=== PATIENT | female | born 1945 | race Caucasian/White ===

== ENCOUNTER 2017-06-26 08:00 | Emergency (ER) | payer OTHER, MEDICARE ==
[2017-06-26] MEDS: HYDROCODONE/APAP (5/325) TAB PO (09:11)
== END 2017-06-26 10:00 | disposition home or self-care (01) ==
LOC: FTE 10:00
DX: H92.02 Otalgia, left ear (principal); R05 Cough; I10 Essential (primary) hypertension; Z79.84 Long term (current) use of oral hypoglycemic drugs; Z85.3 Personal history of malignant neoplasm of breast
CPT/HCPCS: 71045; 99284-25